=== PATIENT | male | born 1980 | race Caucasian/White ===

== ENCOUNTER 2018-10-13 09:04 | Day surgery (SDC) | payer OTHER ==
--- NOTE | 2018-10-11 14:45 | NUR ---
SPOKE WITH PT ON PHONE FOR PRE-EVALUATION. TO COME IN ON THURSDAY FOR RIGHT ARM SURGERY. PT HAD LABS 10-08-18. K+=6.1, EKG SHOWED SINUS RHYTHM WITH ABERRANTLY CONDUCTED SUPRAVENTRICULAR COMPLEXES, POOR R WAVE PROGRESSION. PT REPORTS "PRIMARY DOCTOR IS AWARE OF THE LEVEL, I HAVE A COPY OF THE LABS. I WAS TAKING ALOT OF EMERGENCY C THAT HAS ALOT OF POTASSIUM IN IT, STOPPED ONE WEEK AGO." CALL TO DR HERRING, EXCHANGE ANSWERED. WILL CALL AGAIN THIS AFTERNOON. LABS AND EKG FAXED TO DR HERRING'S OFFICE.
--- NOTE | 2018-10-11 15:59 | NUR ---
TC DR HERRING'S OFFICE, EXCHANGE PICKED UP. NOT IN OFFICE AT THIS TIME.
--- NOTE | 2018-10-11 16:50 | NUR ---
COPY OF LAB AND EKG GIVEN TO ANUEL IN OR TO REVIEW WITH ANESTHESIOLOGIST PRIOR TO SURGERY.
--- NOTE | 2018-10-12 10:55 | NUR ---
CALL FROM DR HERRING. PT JUST SEEN IN OFFICE. SENDING PT OVER TO [facility] [place] AND HAVE STAT POTASSIUM DRAWN. ADMITTING NOTIFIED.
--- NOTE | 2018-10-12 12:48 | NUR ---
RECEIVED STAT POTASSIUM RESULT OF 4.8. CALL TO DR HERRING'S OFFICE SPOKE WITH RADHA. WILL GIVE THE RESULTS. RESULTS ALSO FAXED. NO FURTHER ORDERS AT THIS TIME.
[~2018-10-13] VITALS: Ht 182.9 cm; Wt 99.8 kg
[2018-10-13 10:30] VITALS: BP 111/76
[2018-10-13 16:48] VITALS: BP 134/77
== END 2018-10-13 16:40 | disposition home or self-care (01) ==
LOC: DS 09:04 → OR 11:45 → DS 11:45
DX: S46.291A Other injury of muscle, fascia and tendon of other parts of biceps, right arm, initial encounter (principal); F17.200 Nicotine dependence, unspecified, uncomplicated; Z79.899 Other long term (current) drug therapy; X50.9XXA Other and unspecified overexertion or strenuous movements or postures, initial encounter; Y93.89 Activity, other specified; Y92.89 Other specified places as the place of occurrence of the external cause; Y99.8 Other external cause status
CPT/HCPCS: 76001; J0690; J2175; J2250; J2405; J2704; J3010; J3490; J7120; Q0092